=== PATIENT | female | born 1990 | race African-American/Black ===

== ENCOUNTER 2025-02-03 08:22 | Emergency (ER) | payer MEDICAID ==
[~2025-02-03] VITALS: Ht 175.3 cm; Wt 73.0 kg
--- NOTE | 2025-02-03 08:40 | Physician Documentation ---
History of Present Illness Chief Complaint: Abdominal Pain Stated Complaint: ABDOMINAL PAIN Time Seen by MD: 08:24 HPI 34-year-old female presents to the ED with a complaint of acute onset right flank pain that is 730 this morning. He has any fevers states she has some nausea. Denies any diarrhea. States she has never had a kidney stone. That the pain came on abruptly with pain radiating from her right abdomen region to her right flank Day of Onset: Feb 03, 2025 Medication Reconciliation Allergies: Coded Allergies: No Known Allergies (Unverified , 02/03/25) Scheduled Tamsulosin Hcl* (Flomax*), 1 CAP PO DAILY Physical Exam Vital Signs: Temperature: 98.5, Source: Oral, Heart Rate: 78, Respiratory Rate: 22, BP: 123/75, Pulse Oximetry: 100, Weight: 73.000 Oxygen Flow Rate: 0 Physical Exam General: Alert,gaurding Respiratory: Lungs clear, no respiratory distress. Chest: No accessory muscle use. Cardiovascular: Regular rate and rhythm, no murmurs. Gastrointestinal: Soft, nontender, nondistended. Bowels sounds present. Positive CVA tenderness right side Extremities: Normal range of motion, no deformity. Neurologic: Oriented x4. Psychiatric: Normal mood and affect. Skin: Normal color, warm and dry. No edema, no ecchymosis. Progress Results/Orders Results/Orders Orders - JUANCARLOS VO HAND WELT BUTTER Urinalysis, Cult If Indicated (02/03/25 08:24) Hcg, Ur Ql (02/03/25 08:24) Cbc/Diff (02/03/25 08:24) BMP (02/03/25 08:24) Lipase (02/03/25 08:24) CMP (02/03/25 08:24) Ketorolac Trometh 30mg/Ml Vial (Toradol (02/03/25 08:40) Vital Signs 02/03/25 08:25 Temp 98.5 Pulse 78 Resp 22 B/P (MAP) 123/75 Pulse Ox 100 O2 Flow Rate 0 Laboratory Tests Test 02/03/25 08:30 Urine Comment Medical Decision Making Additional information obtaine: old records Findings Patient did not show any gross hematuria in her urinalysis nor does she have an elevated white count. Not surprising as based on my initial exam I suspected a kidney stone. Her CT findings indicate a 3 mm stone with mild hydronephrosis. Based on the site of the stone I am going to discharge her for outpatient therapy with Flomax and education on increasing fluid intake and taking ibuprofen for pain management. Differential Dx:Considerations: Urinary obstruction, Urinary tract infection Departure Disposition: 01 HOME / SELF CARE / HOMELESS Impression: Primary Impression: Kidney calculi Condition: Improved Discharge Instructions: Kidney Stones, [id number] Additional Instructions: You have a small passable kidney stone in your right urinary tract. I have discharging you with Flomax to help with the passing of the stone I also recommend increasing fluid intake and taking ibuprofen for pain and inflammation Referrals: NO PRIMARY CARE PROVIDER (PCP) Prescriptions Tamsulosin Hcl* (Flomax*) 0.4 Mg Cap.sr.24h 1 CAP PO DAILY for 30 Days, #30 CAP Prov: JUANCARLOS VO NP 02/03/25 Education Educated: Patient Educated regarding: diagnosis Signature Scribe Signature: b Attestation: Scribed for Juancarlos Vo Lockstitch Collar Setter by Juancarlos Layton NP . 02/03/25 10:42 JUANCARLOS VO NP Feb 03, 2025 08:40 CARINA DEXTER MD Feb 03, 2025 17:42
[2025-02-03] MEDS: ondansetron/PF 4mg/2ml inj IV ONE (08:43)
[2025-02-03] MEDS: ketorolac trometh 30MG/ML vial 30 MG/ML VIAL IM ONE (08:46)
[2025-02-03 08:48] LABS: URINE HCG NEGATIVE (NEG)
[2025-02-03 08:50] LABS: MEAN PLATELET VOLUME 6.2 FL (7.4-10.4); RED CELL DISTRIBUTION WIDTH 13.8 % (11.5-14.5)
[2025-02-03 08:52] LABS: LEUKOCYTE ESTERASE ,URINE NEGATIVE (Neg); NITRITES, URINE NEGATIVE (Neg); OCCULT BLOOD,URINE TRACE-INTACT (Neg)
[2025-02-03 09:03] LABS: CREATININE 0.89 MG/DL (0.40-0.90); TOTAL CARBON DIOXIDE 22.6 MMOL/L (24-32); eCRCL 91 ML/MIN; eGFR 72 ML/MIN
[2025-02-03 09:04] LABS: UA COLLECTION TYPE CLN CATCH MIDSTREAM
[2025-02-03 09:05] LABS: RENAL CELLS, URINE FEW /HPF; SQUAMOUS EPITHELIAL CELL,UR FEW /LPF (FEW)
[2025-02-03] MEDS: normal saline 1000ML IV soln IVB ONE (09:27)
--- NOTE | 2025-02-03 10:33 | RADIOLOGY REPORT ---
CT CT ABDOMEN PELVIS INDICATION: flank pain EXAM DATE: 02/03/2025 09:13 AM COMPARISON: None RADIATION DOSE: CTDIvol: 8 mGy, DLP: 373 mGy*cm PROCEDURE: Helical CT images were obtained of the abdomen and pelvis Sagittal and coronal reconstructions are provided. ORAL CONTRAST: None. ADDITIONAL IMAGES / REFORMATS: None All CT scans at this medical facility are performed using dose modulation techniques as appropriate to a performed exam including the following: Automated exposure control was utilized; adjustment of the MA and/or KV according to patient size; and use of iterative reconstruction technique. FINDINGS: LUNG BASE: Normal. LIVER: Normal. GALLBLADDER AND BILIARY TREE: No calcified gallstones. Normal caliber wall. No intra- or extrahepatic biliary ductal dilation. PANCREAS: Normal. SPLEEN: Normal. BOWEL: Normal. Normal appendix. ADRENALS: Normal. KIDNEYS AND URETER: Probable 3 mm distal right ureter kidney stone with mild right hydronephrosis. BLADDER: Normal. REPRODUCTIVE ORGANS: Normal. LYMPH NODES:No lymphadenopathy. PERITONEUM: Trace pelvic fluid. VESSELS: Scattered atherosclerotic calcifications are noted. RETROPERITONEUM: Normal. ABDOMINAL WALL: Normal. BONES: Scattered osseous degenerative changes are noted. IMPRESSION: Probable 3 mm distal right ureter kidney stone with mild right hydronephrosis.
[2025-02-03] MEDS ORDERED: TAMS-55 PO (10:41)
[2025-02-03] MEDS: HYDROcodone/acetaminophen 10/325mg tab PO ONE (10:52)
[2025-02-03 10:58] VITALS: BP 115/52; PULSE 68; RESP 12; TEMP 98.5; O2SAT 100
[2025-02-03] MEDS ORDERED: ONDA-243 PO (21:54)
[2025-02-03] MEDS ORDERED: IBUP-1984 PO (21:54)
[2025-02-03] MEDS ORDERED: HYDR-3965 PO (22:04)
== END 2025-02-03 11:07 | disposition home or self-care (01) ==
LOC: ER 08:24
DX: N20.0 Calculus of kidney (principal); R50.9 Fever, unspecified
CPT/HCPCS: 36415; 74176; 80053; 81001; 81025; 83690; 85025; 96361; 96372; 96374; 99285; J1885; J2405; J7030

== ENCOUNTER 2025-02-03 17:30 | Emergency (ER) | payer MEDICAID ==
[~2025-02-03] VITALS: Ht 170.2 cm; Wt 68.2 kg
[~2025-02-03 17:30] MED LIST: TAMS-55 PO
--- NOTE | 2025-02-03 19:31 | Physician Documentation ---
History of Present Illness Chief Complaint: Nausea Stated Complaint: KIDNEY STONE Time Seen by MD: 18:52 HPI A 34-year-old female returns to the emergency department with unresolved pain and nausea secondary to ureterolithiasis. Seen earlier today in the emergency department and diagnosed with ureterolithiasis. 3 mm distal ureter stone noted on CT imaging. Patient had near complete mitigation of her pain after receiving Toradol. Was discharged with a aftercare instructions and outpatient management care plan however patient unable to keep medications down requiring her to return to the emergency department. No prior history of renal calculus this is her 1st time episode. She is in moderate distress. Medication Reconciliation Allergies: Coded Allergies: No Known Allergies (Unverified , 02/03/25) Scheduled Ibuprofen* (Motrin*), 800 MG PO Q8H Tamsulosin Hcl* (Flomax*), 1 CAP PO DAILY Scheduled PRN Hydrocodone Bit/Acetaminophen 5/325 MG (Leblanc 5/325 MG), 1-2 TAB PO Q4-6 hours PRN for pain ONDANSETRON ODT 4mg tablet (Ondansetron Odt), 1 TAB PO Q6H PRN PRN for nausea/vomiting Review of Systems All Other Systems at this time: Reviewed and Negative Constitutional: Reports: see HPI Genitourinary: Reports: flank pain, hematuria Physical Exam Vital Signs: RN Vital Signs have been reviewed: Yes, Temperature: 98.1, Source: Temporal, Heart Rate: 79, Respiratory Rate: 18, BP: 117/50, Pulse Oximetry: 99, Weight: 68.180 Oxygen Flow Rate: 0 General Appearance: alert, WD/WN, moderate distress EENT: PERRL/EOMI Neck: normal inspection Respiratory: lungs clear Chest: no accessory muscle use Cardiovascular: normal peripheral pulses Back: CVA tenderness (R) Extremities: normal range of motion Neurologic: oriented x4 Psychiatric: normal mood/affect, anxiety Skin: normal color, warm/dry Lymphatic: no adenopathy Progress Results/Orders Results/Orders Vital Signs 02/03/25 17:33 Temp 98.1 Pulse 79 Resp 18 B/P (MAP) 117/50 Pulse Ox 99 O2 Flow Rate 0 Medical Decision Making Additional information obtaine: old records, other (All labs, imaging in documentation reviewed from prior visit.) Findings 34-year-old female returns to the emergency department for unresolved nausea, pain secondary to ureter calculus. Patient to receive IV hydration via normal saline, Toradol and morphine with Zofran for nausea or vomiting. Patient had immediate response to receive an medications. She is awaiting reassessment. Tolerating p.o. fluids and in good spirits prior to discharge. She will then resume her outpatient medication plan. Additionally I will be providing her Urology contact for follow up. Patient's safely discharged in the emergency department. Differential Dx:Considerations: Urinary obstruction, Urinary tract infection, Urolithiasis Departure Disposition: HOME / SELF CARE / HOMELESS Impression: Primary Impression: Kidney calculi Condition: Improved Discharge Instructions: Dietary Guidelines to Help Prevent Kidney Stones, Kidney Stones, [id number] Additional Instructions: Tonight in the emergency department you received additional IV hydration, medication for nausea and for pain. I have provided you with outpatient prescription for additional pain management as needed. Continue with your other medications as directed from your previous provider and make follow up with a local urologist. Please return to the emergency department if symptoms worsen. Thank you for visiting [facility]. Referrals: NO PRIMARY CARE PROVIDER (PCP) Prescriptions Hydrocodone Bit/Acetaminophen 5/325 MG (Leblanc 5/325 MG) 5 Mg/325 Mg Tablet 1-2 TAB PO Q4-6 hours PRN for pain, #16 TAB Prov: BRICE JARVIS 02/03/25 ONDANSETRON ODT 4mg tablet (ONDANSETRON ODT) 4 Mg Tab.rapdis 1 TAB PO Q6H PRN PRN for nausea/vomiting for 4 Days, #16 TAB 0 Refills Prov: BRICE JARVIS 02/03/25 Ibuprofen* (Motrin*) 400 Mg Tablet 800 MG PO Q8H for 10 Days, #30 TAB Prov: BRICE JARVIS 02/03/25 Education Educated: Patient Educated regarding: diagnosis, treatment, prognosis, need for follow up Signature Scribe Signature: . Attestation: BRICE GAVIRIA Feb 03, 2025 19:31
[2025-02-03] MEDS: normal saline 1000ml 1,000 ML IV ONE (20:06)
[2025-02-03] MEDS: ondansetron/PF 4mg/2ml inj IV ONE ×2 (20:07→21:27)
[2025-02-03] MEDS: ketorolac trometh 15mg/ml vial 15 MG/ML ML IV ONE (20:11)
[2025-02-03] MEDS: morphine 4 MG/ML inj SYRINge IV ONE (20:14)
[2025-02-03] MEDS ORDERED: ONDA-243 PO (21:54)
[2025-02-03] MEDS ORDERED: IBUP-1984 PO (21:54)
[2025-02-03] MEDS ORDERED: HYDR-3965 PO (22:04)
[2025-02-03 22:20] VITALS: BP 124/78; PULSE 69; RESP 18; TEMP 98.6; O2SAT 99
== END 2025-02-03 22:21 | disposition home or self-care (01) ==
LOC: ER 17:31
DX: N20.2 Calculus of kidney with calculus of ureter (principal); Z79.899 Other long term (current) drug therapy
CPT/HCPCS: 96361; 96374; 96375; 96376; 99284; J1885; J2270; J2405; J7030